=== PATIENT | female | born 1975 | race Caucasian/White ===

== ENCOUNTER 2017-08-02 17:22 | Inpatient (IN) | payer OTHER ==
[~2017-08-02] VITALS: Ht 162.5 cm; Wt 105.8 kg
[~2017-08-02 17:22] MED LIST: ALPRAZOLAM XR2 MG PO; BACTRIM DS 8001 TA1 PO; CELEXA20 MG PO; CEPHALEXIN500 M1 PO; CLEOCIN150 MG PO; CLONAZEPAM2 M1 PO; DIFLUCAN150 MG PO; FOLIC ACID1 MG PO; GABAPENTIN600 MG PO; Hydrocortisone30 GM T; KEFLEX500 MG PO; KETOROLAC10 MG PO; MOTRIN600 MG PO; NAPROSYN500 MG PO; NEURONTIN600 MG PO; PRAVACHOL20 MG PO; PREDNISONE10 MG PO; Peridex 473 ML473 ML PO; SOMA; SOMA350 MG PO; SUBOXONE 2 MG-01 TA1 PO; SUBOXONE 8 MG-1 EACH SL; Synthroid,Levo25 MCG PO; TORADOL10 MG PO; TRAMADOL HCL50 MG PO; ULTRAM50 MG PO; VALIUM10 MG PO; XANAX0.5 MG PO; XANAX1 MG PO; [UNRECOGNIZED DRUG - OTHER]
[2017-08-02 17:37] VITALS: BP 132/80
[2017-08-02 18:08] LABS: BASO # 0.1 10*3/uL (0.0-0.1); BASO % 0.7 % (0.0-1.0); EOS # 0.4 10*3/uL (0.0-0.4); EOS % 3.1 % (1.0-4.0); HEMATOCRIT 36.8 % (37.0-47.0); HEMOGLOBIN 11.9 g/dl (12.0-16.0); LYMPH % 26.1 % (27.0-41.0); MEAN CELL VOLUME 88.5 fl (81.0-99.0); MEAN CORPUSCULAR HGB 28.6 pg (27.0-31.0); MEAN CORPUSCULAR HGB CONC 32.3 g/dl (33.0-37.0); MEAN PLATELET VOLUME 10.1 fl (9.6-12.3); MONO # 0.9 10*3/uL (0.1-1.0); MONO % 7.8 % (3.0-9.0); NEUT # 7.1 10*3/uL (2.3-7.9); NEUT % 61.6 % (47.0-73.0); PLATELET COUNT AUTOMATED 589 10*3/uL (130-400); RED BLOOD COUNT 4.16 10*6/uL (4.10-5.10); WHITE BLOOD COUNT 11.5 10*3/uL (4.8-10.8)
[2017-08-02 18:25] LABS: ALBUMIN 2.9 gm/dl (3.1-4.5); ALKALINE PHOSPHATASE 95 U/L (45-117); BUN 8 mg/dl (7-24); CHLORIDE 106 mmol/L (98-107); CREATININE 0.76 mg/dL (0.55-1.02); POTASSIUM 3.9 mmol/L (3.5-5.1); SGOT/AST 19 IU/L (3-35); SGPT/ALT 20 U/L (12-78); SODIUM 141 mmol/L (136-145); TOTAL PROTEIN 6.6 gm/dL (6.4-8.2)
[2017-08-02 18:31] LABS: TROPONIN I < 0.015 ng/ml (<0.045)
[2017-08-02 18:40] VITALS: BP 140/84
[2017-08-02 19:37] VITALS: BP 133/82
[2017-08-02 20:00] VITALS: BP 137/54
[2017-08-02 21:00] VITALS: BP 116/76; BP 126/74
[2017-08-03] VITALS: BP 129/73
[2017-08-03 06:41] LABS: HEMATOCRIT 35.9 % (37.0-47.0); HEMOGLOBIN 11.7 g/dl (12.0-16.0); MEAN CELL VOLUME 87.1 fl (81.0-99.0); MEAN CORPUSCULAR HGB 28.4 pg (27.0-31.0); MEAN CORPUSCULAR HGB CONC 32.6 g/dl (33.0-37.0); MEAN PLATELET VOLUME 10.1 fl (9.6-12.3); PLATELET COUNT AUTOMATED 586 10*3/uL (130-400); RED BLOOD COUNT 4.12 10*6/uL (4.10-5.10); WHITE BLOOD COUNT 11.5 10*3/uL (4.8-10.8)
[2017-08-03 07:15] LABS: ALBUMIN 2.7 gm/dl (3.1-4.5); BUN 7 mg/dl (7-24); CHLORIDE 106 mmol/L (98-107); CHOLESTEROL 167 mg/dL (<200); CREATININE 0.73 mg/dL (0.55-1.02); PHOSPHOROUS 2.2 mg/dL (2.5-4.9); SGOT/AST 18 IU/L (3-35); SGPT/ALT 19 U/L (12-78); SODIUM 140 mmol/L (136-145); TOTAL PROTEIN 6.6 gm/dL (6.4-8.2); TRIGLYCERIDES 102 mg/dl (<150); VLDL CHOLESTEROL 20 mg/dL (6-40)
[2017-08-03 07:16] LABS: TOTAL CELLS COUNTED 100 #CELLS
[2017-08-03 07:17] LABS: PLATELET SUFFICIENCY HIGH (NORMAL)
[2017-08-03 07:32] LABS: ALKALINE PHOSPHATASE 85 U/L (45-117); HDL CHOLESTEROL 52 mg/dl (40-60); LDL CHOLESTEROL 95 mg/dL (9-159)
[2017-08-03 08:00] VITALS: BP 152/71
[2017-08-03] MEDS ORDERED: DIAZEPAM5 MG PO (08:23)
[2017-08-03 08:48] LABS: VITAMIN D, 25-HYDROXY 11.6 ng/mL (30-100)
[2017-08-03] MEDS ORDERED: ATARAX,VISTARIL10 MG PO (09:54)
[2017-08-03] MEDS ORDERED: BUPREN/NALOX SUB 8-2 (09:54)
[2017-08-03] MEDS ORDERED: BUSPIRONE HCL7.5 MG PO (09:55)
[2017-08-03] MEDS ORDERED: LAMOTRIGINE200 MG PO (09:55)
[2017-08-03] MEDS ORDERED: IMIPRAMINE HCL25 MG PO (09:55)
[2017-08-03] MEDS ORDERED: BUPRENORPHINE HY8 MG SL (11:08)
[2017-08-03 12:00] VITALS: BP 121/70
[2017-08-03 16:00] VITALS: BP 118/65
[2017-08-03 20:00] VITALS: BP 128/63
[2017-08-04] VITALS: BP 136/72
[2017-08-04 07:38] LABS: BASO % 0.1 % (0.0-1.0); HEMATOCRIT 37.5 % (37.0-47.0); HEMOGLOBIN 11.9 g/dl (12.0-16.0); LYMPH # 1.4 10*3/uL (1.3-4.4); LYMPH % 7.7 % (27.0-41.0); MEAN CELL VOLUME 89.5 fl (81.0-99.0); MEAN CORPUSCULAR HGB 28.4 pg (27.0-31.0); MEAN CORPUSCULAR HGB CONC 31.7 g/dl (33.0-37.0); MEAN PLATELET VOLUME 10.7 fl (9.6-12.3); MONO # 0.4 10*3/uL (0.1-1.0); MONO % 2.2 % (3.0-9.0); NEUT # 16.6 10*3/uL (2.3-7.9); NEUT % 88.9 % (47.0-73.0); PLATELET COUNT AUTOMATED 612 10*3/uL (130-400); RED BLOOD COUNT 4.19 10*6/uL (4.10-5.10); RED CELL DISTRI WIDTH 14.6 % (0-14.5); WHITE BLOOD COUNT 18.7 10*3/uL (4.8-10.8)
[2017-08-04 08:00] VITALS: BP 129/86
[2017-08-04] MEDS ORDERED: PREDNISONE10 MG PO (09:19)
[2017-08-04] MEDS ORDERED: LEVAQUIN750 M1 PO (09:19)
[2017-08-04] MEDS ORDERED: VITAMIN D-32000 UNI1 PO (09:21)
[2017-08-04] MEDS ORDERED: NATURE'S BLEND F1 MG PO (09:21)
[2017-08-04] MEDS ORDERED: IMITREX50 MG PO (09:26)
== END 2017-08-04 10:44 | disposition home or self-care (01) | DRG 202 ==
LOC: ED 17:22 → EDHOLD 20:02 → 4E 20:02 → EDHOLD 20:12 → 4E 20:25
PROVIDERS: Family Medicine; Hospitalist; Physician Assistant
DX: J20.9 Acute bronchitis, unspecified (principal); E43 Unspecified severe protein-calorie malnutrition; Z68.41 Body mass index [BMI] 40.0-44.9, adult; F41.9 Anxiety disorder, unspecified; F13.10 Sedative, hypnotic or anxiolytic abuse, uncomplicated; F32.9 Major depressive disorder, single episode, unspecified; R00.0 Tachycardia, unspecified; D47.3 Essential (hemorrhagic) thrombocythemia; K02.9 Dental caries, unspecified; E78.00 Pure hypercholesterolemia, unspecified; Z72.0 Tobacco use; Z83.3 Family history of diabetes mellitus; Z82.49 Family history of ischemic heart disease and other diseases of the circulatory system; Z88.8 Allergy status to other drugs, medicaments and biological substances; Z91.041 Radiographic dye allergy status; Z91.013 Allergy to seafood; Z79.899 Other long term (current) drug therapy; Z71.6 Tobacco abuse counseling; Z80.9 Family history of malignant neoplasm, unspecified

== ENCOUNTER 2018-05-14 09:05 | Emergency (ER) | payer OTHER ==
[~2018-05-14] VITALS: Ht 162.5 cm; Wt 81.6 kg
[~2018-05-14 09:05] MED LIST changes: +ATARAX,VISTARIL10 MG PO; +BUPREN/NALOX SUB 8-2; +BUPRENORPHINE HY8 MG SL; +BUSPIRONE HCL7.5 MG PO; +DIAZEPAM5 MG PO; +IMIPRAMINE HCL25 MG PO; +IMITREX50 MG PO; +LAMOTRIGINE200 MG PO; +LEVAQUIN750 M1 PO; +NATURE'S BLEND F1 MG PO; +VITAMIN D-32000 UNI1 PO
[2018-05-14] MEDS ORDERED: CHLORZOXAZONE500 M2 PO (10:51)
[2018-05-14] MEDS ORDERED: NAPROSYN500 MG PO (10:51)
== END 2018-05-14 11:41 | disposition home or self-care (01) ==
LOC: ED 09:05
DX: M54.6 Pain in thoracic spine (principal); R07.81 Pleurodynia; F17.200 Nicotine dependence, unspecified, uncomplicated; Z91.041 Radiographic dye allergy status; Z88.6 Allergy status to analgesic agent; Z91.013 Allergy to seafood; Z79.2 Long term (current) use of antibiotics; Z79.899 Other long term (current) drug therapy

== ENCOUNTER 2019-08-05 10:15 | Inpatient (IN) | payer OTHER ==
[~2019-08-05] VITALS: Ht 162.5 cm; Wt 85.8 kg
[2019-08-05] VITALS (7 sets, daily range): BP systolic 95–132; BP diastolic 50–82
[~2019-08-05 10:15] MED LIST changes: +CHLORZOXAZONE500 M2 PO
[2019-08-05 11:49] LABS: BASO # 0.1 10*3/uL (0.0-0.1); BASO % 0.8 % (0.0-1.0); EOS # 0.1 10*3/uL (0.0-0.4); EOS % 0.3 % (1.0-4.0); HEMATOCRIT 43.9 % (37.0-47.0); LYMPH # 3.9 10*3/uL (1.3-4.4); LYMPH % 24.1 % (27.0-41.0); MEAN CELL VOLUME 89.6 fl (81.0-99.0); MEAN CORPUSCULAR HGB 28.6 pg (27.0-31.0); MEAN CORPUSCULAR HGB CONC 31.9 g/dl (33.0-37.0); MEAN PLATELET VOLUME 10.8 fl (9.6-12.3); MONO # 1.1 10*3/uL (0.1-1.0); MONO % 6.6 % (3.0-9.0); NEUT # 10.9 10*3/uL (2.3-7.9); NEUT % 67.9 % (47.0-73.0); PLATELET COUNT AUTOMATED 435 10*3/uL (130-400); RED CELL DISTRI WIDTH 14.5 % (0-14.5)
[2019-08-05 12:05] LABS: ALBUMIN 3.5 gm/dl (3.1-4.5); ALKALINE PHOSPHATASE 116 U/L (45-117); BUN 8 mg/dl (7-24); CHLORIDE 110 mmol/L (98-107); CREATININE 0.83 mg/dL (0.55-1.02); POTASSIUM 3.7 mmol/L (3.5-5.1); SGOT/AST 12 IU/L (3-35); SGPT/ALT 19 U/L (12-78); SODIUM 139 mmol/L (136-145); TOTAL PROTEIN 7.6 gm/dL (6.4-8.2)
--- NOTE | 2019-08-05 13:01 | NUR ---
PAIN MED GIVEN WITHOUT INCIDENT.
--- NOTE | 2019-08-05 15:23 | NUR ---
PT W/O ACUTE DISTRESS NOTED AWAITING ADMISSION ORDERS AND ADDITIONAL PLAN OF CARE,SAFETY PRECAUTIONS INTACT AND CALL LIGHT WITHIN REACH.
[2019-08-05] MEDS ORDERED: HYDROXYZINE PAM25 M1 PO (16:10)
--- NOTE | 2019-08-05 18:15 | NUR ---
The assessment has been completed. NATALIA AMBROSE Time: 1814 A 43 year old FEMALE admitted to under services of ACACIA NASH DO. Pt. arrived via ambulatory from ER. Chief complaint: DENTAL ABSCESS-ONSET MONDAY. EDEMA STARTED YESTERDAY.. NATALIA AMBROSE
[2019-08-05] MEDS ORDERED: DIAZEPAM10 M1 PO (18:31)
[2019-08-05] MEDS ORDERED: GABAPENTIN800 MG PO (18:31)
[2019-08-05] MEDS ORDERED: TOPIRAMATE50 M2 PO (19:27)
--- NOTE | 2019-08-05 19:30 | NUR ---
DR. JAVIER SPOKE WITH THIS NURSE AND STATED THAT NORMALLY HE WOULD TAKE THE PATIENT TO SURGERY BUT HE IS GOING OUT OF TOWN. HE STATED THAT IT WAS STABLE AND LOOKS IF IT IS SPONTANEOUSLY DRAINING RIGHT NOW. HE STATED THAT IF THE HOSPITALISTS WOULD LIKE HER TO STILL HAVE SURGERY SHE WOULD HAVE TO BE TRANSFERRED, IF NOT, HE WOULD BE HAPPY TO FOLLOW UP WITH HER ON DISCHARGE. THIS WAS RELAYED TO DR. MASSEY. AN ORDER WAS ALSO RECIEVED FROM DR. MASSEY TO D/C MORPHINE IV SINCE PATIENT IS ON SUBOXONE AND TO GIVE IV TORADOL 15MG Q6H NEEDED FOR PAIN
--- NOTE | 2019-08-05 19:37 | NUR ---
PRN TORADOL GIVEN FOR PT COMPLAINTS OF PAIN 10/10 IN THE MOUTH. PATIENT CRYING AND TALKING TO SELF. STATES SHE JUST NEEDS TO CALM DOWN. SHE STATES SHE BELIEVES HER MOUTH IS DRAINING A LITTLE BIT AND THAT SHE THINKS MAYBE THE ANTIBIOTICS ARE ALREADY STARTING TO HELP RELIEVE SOME PRESSURE. EXPLAINED PLAN OF CARE TO PATIENT SHE IS STILL EXTREMELY ANXIOUS AND CRYING. WILL CONTINUE TO MONITOR.
[2019-08-06] VITALS: BP 126/85; BP 95/42
--- NOTE | 2019-08-06 00:15 | NUR ---
PATIENT SLEEPING, ZOSYN HUNG. PATIENT WOKE UP. DENIES ANY COMPLAINTS. WENT BACK TO SLEEP. CALL LIGHT WITHIN REACH, WILL MONITOR
--- NOTE | 2019-08-06 02:24 | NUR ---
PATIENT CONTINUES TO SLEEP. NO DISTRESS NOTED. CALL LIGHT WITHIN REACH
--- NOTE | 2019-08-06 02:54 | NUR ---
24 HR chart check completed.
--- NOTE | 2019-08-06 05:38 | NUR ---
PRN TORADOL GIVEN FOR PT COMPLAINTS OF AWFUL MOUTH PAIN PATIENT CRYING. 04/18. CALL LIGHT WITHIN REACH, MAMIE MONITOR
--- NOTE | 2019-08-06 05:43 | NUR ---
DAINMAI Linwood [id number] Please refer to the physician's history and physical for past medical history, comorbid conditions, and allergies. Diagnosis: FACIAL CELLULITIS SEPSIS DENTAL ABSCESS Homar Score: 22,LOW OR NO RISK WOUND DESCRIPTIONS: Wound Number: 1 Location of the wound: right lower jaw/chin area Type of wound: abscess Size: 4.5cm x 7.0cm x <0.1cm Tunneling: none Undermining: none Sinus Tract: none Presence of Exudate: none Amount: None Color: Red Odor: None Periwound Skin Appearance: Edema Wound edges: closed Pain (associated with wound): tender to touch How does patient state this happened? pt stated that this started as a lump on monday and then the swelling started monday evening and monday morning that swelling just kept increasing after she dropped her daughter off at school she came in because it was getting worse Surface the patient is resting on: Isoflex SKIN PREVENTION RECOMMENDATION: 1. Pressure redistribution support surface as appropriate 2. Elevate heels 3. Remove boots/TEDS every shift and reapply 4. Head of bed 30 degrees as tolerated 5. Assess nutrition and hydration 6. Manage moisture 7. Avoid the use of containment devices while in bed 8. Use absorptive products on surfaces limit layers of linens on bed 9. Turn and reposition every 1-2 hours in bed and every 1 hour in chair as tolerated 10. Weight shifts every 15 minutes while up in chair 11. Offloading with pillows or device to keep heels elevated off bed 12. Monitor skin at least every shift 13. Inspect under medical devices twice a day WOUND TREATMENT RECOMMENDATIONS: Dr. Hoffman is already on consult and is following with patient.
--- NOTE | 2019-08-06 06:38 | NUR ---
SPOKE WITH DR. BANKS AT THIS TIME. PATIENT STILL IN PAIN AFTER GETTING 15MG OF TORADOL AN HOUR AGO. PATIENT CRYING AND STATES SHE DID WHAT DR. JAVIER TOLD HER TO DO WHICH WAS MASSAGE THE OUTSIDE OF HER MOUTH AND SWISH WITH WARM WATER TO ALLOW FOR MORE DRAINAGE OF THE ABSCESS. HE STATED HE DIDN'T WANT TO GIVE HER ANYMORE TORADOL HE DIDN'T WANT TO RUIN HER KIDNEYS AND STATED TO TRY TYLENOL FIRST
[2019-08-06 06:39] LABS: BASO # 0.1 10*3/uL (0.0-0.1); BASO % 1.2 % (0.0-1.0); EOS # 0.3 10*3/uL (0.0-0.4); HEMATOCRIT 37.6 % (37.0-47.0); HEMOGLOBIN 11.9 g/dl (12.0-16.0); LYMPH # 3.1 10*3/uL (1.3-4.4); LYMPH % 28.8 % (27.0-41.0); MEAN CELL VOLUME 90.8 fl (81.0-99.0); MEAN CORPUSCULAR HGB 28.7 pg (27.0-31.0); MEAN CORPUSCULAR HGB CONC 31.6 g/dl (33.0-37.0); MEAN PLATELET VOLUME 11.1 fl (9.6-12.3); MONO # 0.7 10*3/uL (0.1-1.0); MONO % 6.7 % (3.0-9.0); NEUT # 6.5 10*3/uL (2.3-7.9); PLATELET COUNT AUTOMATED 342 10*3/uL (130-400); RED BLOOD COUNT 4.14 10*6/uL (4.10-5.10); RED CELL DISTRI WIDTH 14.8 % (0-14.5); WHITE BLOOD COUNT 10.8 10*3/uL (4.8-10.8)
--- NOTE | 2019-08-06 06:44 | NUR ---
PRN TYLENOL GIVEN FOR CONTINUED 10/10 MOUTH PAIN. PATIENT STILL TEARFUL. CALL LIGHT WITHIN REACH, WILL MONITOR
[2019-08-06 07:12] LABS: ALBUMIN 2.7 gm/dl (3.1-4.5); ALKALINE PHOSPHATASE 78 U/L (45-117); BUN 12 mg/dl (7-24); CHLORIDE 116 mmol/L (98-107); CREATININE 0.68 mg/dL (0.55-1.02); PHOSPHOROUS 2.9 mg/dL (2.5-4.9); POTASSIUM 3.7 mmol/L (3.5-5.1); SGOT/AST 8 IU/L (3-35); SGPT/ALT 14 U/L (12-78); SODIUM 143 mmol/L (136-145); TOTAL PROTEIN 5.9 gm/dL (6.4-8.2)
[2019-08-06 08:00] VITALS: BP 122/64; BP 122/66
--- NOTE | 2019-08-06 09:00 | NUR ---
Booth Usher in to talk to patient. Patient states lives at home with family. There are no steps in the home. Physician: none Pharmacy: [facility] Home health services: none Patient's level of ADLs: INDEPENDENT Patient has working utilities: all working DME: none Follow-up physician's appointment after d/c: will be made by hospitalist nurse director upon discharge with doctor of patient's choice Does patient want to access PORTAL?: no Discharge plan discussed with patient. she states she lives at home with family, she is independent in adls and ambulation, she will return home when medically stable and denies any home needs, case management will follow. HARRIS MEI
--- NOTE | 2019-08-06 11:51 | NUR ---
TORADOL GIVEN FOR C/O MOUTH PAIN. RATES 10/10 ON PAIN SCALE. WILL MONITOR.
--- NOTE | 2019-08-06 11:51 | NUR ---
Nutritional Support Services Note: Spoke with pt regarding PO intake. Stated that she had an omelete this morning and has an appetite, but is being careful of her choices due to her dental abscess. Encouraged her to continue to eat well. Yelitza Alcaraz, [employer] administrator
[2019-08-06 12:00] VITALS: BP 136/76
--- NOTE | 2019-08-06 13:00 | NUR ---
TORADOL EFFECTIVE PER PT.
--- NOTE | 2019-08-06 15:07 | NUR ---
TYLENOL GIVEN FOR C/O MOUTH PAIN. RATES 7/10 ON PAIN SCALE. WILL MONITOR.
[2019-08-06 16:00] VITALS: BP 94/55
[2019-08-06 20:00] VITALS: BP 112/65
[2019-08-07] VITALS: BP 110/59
--- NOTE | 2019-08-07 00:25 | NUR ---
TYLENOL AND TORADOL GIVEN PER ORDER FOR RIGHT SIDE MOUTH PAIN RATED "9". SEE SEP.
--- NOTE | 2019-08-07 00:47 | NUR ---
24 HR chart check completed.
--- NOTE | 2019-08-07 01:20 | NUR ---
PT. RESTING EYES CLOSED. NO ACUTE DISTRESS NOTED. TORADOL AND TYLENOL HELPING PER PT.
--- NOTE | 2019-08-07 04:00 | NUR ---
SLEEPING NO ACUTE DISTRESS NOTED.
[2019-08-07 08:00] VITALS: BP 93/91
--- NOTE | 2019-08-07 09:00 | NUR ---
case managment visits with patient, she will return home when medically stable and denies any home needs
[2019-08-07] MEDS ORDERED: CLINDAMYCIN150 MG PO (10:27)
[2019-08-07] MEDS ORDERED: Motrin,Rufen800 MG PO (10:27)
--- NOTE | 2019-08-07 11:03 | NUR ---
PATIENT DISCHARGED TO HOME.
== END 2019-08-07 11:03 | disposition home or self-care (01) | DRG 720 ==
LOC: ED 10:15 → 4E 15:31 → EDHOLD 15:31 → 4E 17:20
PROVIDERS: Physician Assistant; Student in an Organized Health Care Education/Training Program; ADMIT Internal Medicine
DX: A41.9 Sepsis, unspecified organism (principal); L03.211 Cellulitis of face; K04.7 Periapical abscess without sinus; E43 Unspecified severe protein-calorie malnutrition; D47.3 Essential (hemorrhagic) thrombocythemia; E78.00 Pure hypercholesterolemia, unspecified; F41.9 Anxiety disorder, unspecified; F32.9 Major depressive disorder, single episode, unspecified; K02.9 Dental caries, unspecified; Z72.0 Tobacco use; Z71.6 Tobacco abuse counseling; Z88.6 Allergy status to analgesic agent; Z91.041 Radiographic dye allergy status; Z91.013 Allergy to seafood; Z83.3 Family history of diabetes mellitus; Z82.49 Family history of ischemic heart disease and other diseases of the circulatory system; Z80.8 Family history of malignant neoplasm of other organs or systems; Z86.14 Personal history of Methicillin resistant Staphylococcus aureus infection; Z79.899 Other long term (current) drug therapy; Z68.32 Body mass index [BMI] 32.0-32.9, adult

== ENCOUNTER → 2021-03-11 | Outpatient (CLI) | payer OTHER ==
[~2021-03-11] MED LIST changes: +CLINDAMYCIN150 MG PO; +DIAZEPAM10 M1 PO; +GABAPENTIN800 MG PO; +HYDROXYZINE PAM25 M1 PO; +Motrin,Rufen800 MG PO; +TOPIRAMATE50 M2 PO
== END | disposition home or self-care (01) ==
LOC: MAMMO 08:00
PROVIDERS: ATTEND Nurse Practitioner Women's Health
DX: N63.11 Unspecified lump in the right breast, upper outer quadrant (principal); N64.59 Other signs and symptoms in breast

== ENCOUNTER 2021-03-16 08:33 | Emergency (ER) | payer OTHER ==
[~2021-03-16] VITALS: Wt 90.7 kg
== END 2021-03-16 12:00 | disposition left against medical advice (07) ==
LOC: ED 08:33
DX: K08.89 Other specified disorders of teeth and supporting structures (principal); Z53.21 Procedure and treatment not carried out due to patient leaving prior to being seen by health care provider

== ENCOUNTER → 2022-11-09 | Outpatient (CLI) | payer OTHER | END | disposition home or self-care (01) | LOC: MAMMO 01:58 | PROVIDERS: ATTEND Internal Medicine Hematology & Oncology | DX: C50.411 Malignant neoplasm of upper-outer quadrant of right female breast (principal); Z85.3 Personal history of malignant neoplasm of breast ==

== ENCOUNTER → 2023-09-25 | Outpatient (CLI) | payer OTHER | END | disposition home or self-care (01) | LOC: RAD 13:39 | PROVIDERS: ATTEND Nurse Practitioner Family | DX: R05.9 Cough, unspecified (principal); R09.89 Other specified symptoms and signs involving the circulatory and respiratory systems; R91.8 Other nonspecific abnormal finding of lung field; R06.2 Wheezing; Z85.3 Personal history of malignant neoplasm of breast ==

== ENCOUNTER → 2024-05-21 | Outpatient (CLI) | payer OTHER | END | disposition home or self-care (01) | LOC: MAMMO 05-15 10:00 | PROVIDERS: ATTEND Physician Assistant Medical | DX: Z45.2 Encounter for adjustment and management of vascular access device (principal); C50.411 Malignant neoplasm of upper-outer quadrant of right female breast; C50.919 Malignant neoplasm of unspecified site of unspecified female breast; R11.0 Nausea; D70.1 Agranulocytosis secondary to cancer chemotherapy; R10.9 Unspecified abdominal pain; K21.9 Gastro-esophageal reflux disease without esophagitis; G62.9 Polyneuropathy, unspecified; Z90.11 Acquired absence of right breast and nipple; T82.868A Thrombosis due to vascular prosthetic devices, implants and grafts, initial encounter; Z79.810 Long term (current) use of selective estrogen receptor modulators (SERMs) ==

== ENCOUNTER → 2024-09-09 | Outpatient (CLI) | payer OTHER ==
[2024-09-09 14:15] LABS: BASO # 0.1 10*3/uL (0.0-0.1); BASO % 0.8 % (0.0-1.0); EOS # 0.2 10*3/uL (0.0-0.4); EOS % 1.7 % (1.0-4.0); HEMATOCRIT 43.1 % (37.0-47.0); MEAN CELL VOLUME 90.9 fl (81.0-99.0); MEAN CORPUSCULAR HGB 28.9 pg (27.0-31.0); MEAN CORPUSCULAR HGB CONC 31.8 g/dl (33.0-37.0); MEAN PLATELET VOLUME 10.5 fl (9.6-12.3); MONO # 0.6 10*3/uL (0.1-1.0); MONO % 5.3 % (3.0-9.0); NEUT # 8.1 10*3/uL (2.3-7.9); NEUT % 70.7 % (47.0-73.0); PLATELET COUNT AUTOMATED 384 10*3/uL (130-400); RED BLOOD COUNT 4.74 10*6/uL (4.10-5.10); WHITE BLOOD COUNT 11.4 10*3/uL (4.8-10.8)
[2024-09-09 14:42] LABS: ALKALINE PHOSPHATASE 115 U/L (46-116); BUN 9 mg/dl (9-23); CHLORIDE 103 mmol/L (98-107); CHOLESTEROL 247 mg/dL (<200); LDL CHOLESTEROL 172 mg/dL (9-159); SGPT/ALT 27 U/L (5-49); TOTAL PROTEIN 7.4 gm/dL (6.0-8.0)
[2024-09-09 14:44] LABS: VITAMIN D, 25-HYDROXY 34.9 ng/mL (30-100)
== END | disposition home or self-care (01) ==
LOC: LAB 13:25
PROVIDERS: Internal Medicine; ATTEND Physician Assistant
DX: F32.1 Major depressive disorder, single episode, moderate (principal); E03.9 Hypothyroidism, unspecified; R53.83 Other fatigue; Z68.41 Body mass index [BMI] 40.0-44.9, adult